=== PATIENT | female | born 1965 | race Caucasian/White ===

== ENCOUNTER 2017-01-13 01:24 | Emergency (ER) | payer OTHER ==
[2017-01-13 01:29] VITALS: BP 141/78; PULSE 110; RESP 20; TEMP 97.3; O2SAT 97
--- NOTE | 2017-01-13 02:00 | EDPHY ---
H & P Stated Complaint: lac R crowley HPI/ROS: HPI The patient presents with laceration to her right leg which occurred just prior to arrival. She is staying in the hotel and got up in the middle of the night to use the bathroom and hit her leg against what was likely the bedpost. She had immediate onset of pain and bleeding which brought her into the emergency room. She does not have any numbness or tingling of her leg. Her last tetanus shot was in 2007.. REVIEW OF SYSTEMS Constitutional: No fever, no chills. Neurological: No headache. PMHx: History of breast cancer, history of cholecystectomy Soc Hx: Revenue Coordinator, visiting from [place] PHYSICAL General Appearance: Alert, no distress Neurological: A&O, moves all extremities Skin: Warm and dry, no rashes Musculoskeletal: Full range of motion of ankle on the right Extremities: Right anterior leg with L shaped gaping laceration, no apparent deep structure involvement Psychiatric: Patient is oriented X 3, there is no agitation Source: Patient Exam Limitations: No limitations - Personal History Current Tetanus/Diphtheria Vaccine: Yes Current Tetanus Diphtheria and Acellular Pertussis (TDAP): Yes Tetanus Vaccine Date: 2007 - Medical/Surgical History Hx Asthma: No Hx Chronic Respiratory Disease: No Hx Diabetes: No Hx Cardiac Disease: No Hx Renal Disease: No Hx Cirrhosis: No Hx Alcoholism: No Hx HIV/AIDS: No Hx Splenectomy or Spleen Trauma: No Other PMH: hx breast ca - Social History Smoking Status: Never smoked Constitutional: Initial Vital Signs Temperature (C) 36.3 C 01/13/17 01:25 Heart Rate 110 H 01/13/17 01:25 Respiratory Rate 20 01/13/17 01:25 Blood Pressure 141/78 H 01/13/17 01:25 O2 Sat (%) 97 01/13/17 01:25 O2 Delivery Mode Room Air Allergies/Adverse Reactions: amoxicillin Allergy (Verified 01/13/17 01:30) Home Medications: Medication Instructions Recorded Dexkrupa 01/13/17 Medical Decision Making Procedures: LACERATION REPAIR Procedure: Laceration repair. Verbal consent was obtained from the patient. The L-shaped 3 cm laceration on the anterior crowley was anesthetized using lidocaine with epinephrine. The wound was scrubbed, draped and explored to its base with a gloved finger. There were no deep structures involved. No tendon injury was identified. . The wound was repaired with 4. 0 nylon suture. The wound repair was simple. The procedure was performed by myself. Differential Diagnosis: This is a healthy 51-year-old female who presents with a laceration to her anterior crowley, obtained when she bumped her leg into a metal bedpost. She does not appear to have any deep structure involvement. Plan for suture repair. Differential diagnosis includes leg laceration, tibia fracture, tendon injury. - Data Points Medications Given: Discontinued Medications Diphtheria/Tetanus/Acell Pertussis (Boostrix) 0.5 ml IM .ONCE ONE Stop: 01/13/17 02:29 Last Admin: 01/13/17 02:34 Dose: 0.5 ml Departure - Departure Disposition: Home, Routine, Self-Care Clinical Impression: Laceration Condition: Good Instructions: Care For Your Stitches (ED), Laceration (ED) Additional Instructions: Your sutures should be removed in 10 days. Please monitor the wound for any redness, swelling, drainage, warmth. You should keep it covered with a dressing and antibiotic ointment at most times. Please keep this dressing on for the next 24 hours, after that it is okay to get it wet in the shower. Referrals: NONE *PRIMARY CARE P,. [Primary Care Provider] - As per Instructions
[2017-01-13] MEDS ORDERED: TDAP ADULT 0.5 ML INJ (BOOSTRIX) IM ONE (02:28)
== END 2017-01-13 02:36 | disposition home or self-care (01) ==
PROC: 0HQKXZZ Repair Right Lower Leg Skin, External Approach (ICD-10-PCS; principal; 2017-01-13)
DX: S81.811A Laceration without foreign body, right lower leg, initial encounter (principal); Z23 Encounter for immunization; Z85.3 Personal history of malignant neoplasm of breast; W22.8XXA Striking against or struck by other objects, initial encounter; Y92.59 Other trade areas as the place of occurrence of the external cause; Y93.89 Activity, other specified